=== PATIENT | female | born 1975 | race Caucasian/White ===

== ENCOUNTER 2020-05-16 17:28 | Emergency (ER) | payer OTHER ==
[~2020-05-16 17:28] MED LIST: NAPROXEN250 MG PO; NORCO 5-325 TA1 EACH PO; PHENERGAN 12.12.5 M1 PO; PROVERA10 MG PO; ZOLOFT100 MG PO
[2020-05-16 20:45] LABS: BUN/CREATININE RATIO 19 (0-10)
[2020-05-16 21:08] LABS: HEMOGLOBIN 10.2 gm/dl (12.3-15.3); RED BLOOD COUNT 4.62 M/UL (4.00-5.10); WHITE BLOOD COUNT 17.6 K/UL (4.5-11.0)
[2020-05-16] MEDS ORDERED: TORADOL 10 MG T10 MG PO (21:22)
== END 2020-05-16 21:25 | disposition home or self-care (01) ==
LOC: ER1 17:28
PROVIDERS: Emergency Medicine
DX: S39.012A Strain of muscle, fascia and tendon of lower back, initial encounter (principal); D72.829 Elevated white blood cell count, unspecified; R31.9 Hematuria, unspecified; X50.0XXA Overexertion from strenuous movement or load, initial encounter
CPT/HCPCS: 72131; 80053; 81001; 85025; 86140; 96372; 99284; J1885; Q9967

== ENCOUNTER 2020-06-03 23:29 | Emergency (ER) | payer OTHER ==
[~2020-06-03 23:29] MED LIST changes: +TORADOL 10 MG T10 MG PO
[2020-06-04 00:42] LABS: HEMOGLOBIN 10.1 gm/dl (12.3-15.3); RED BLOOD COUNT 4.68 M/UL (4.00-5.10); WHITE BLOOD COUNT 12.1 K/UL (4.5-11.0)
[2020-06-04 00:51] LABS: BUN/CREATININE RATIO 17 (0-10)
== END 2020-06-04 08:03 | disposition home or self-care (01) ==
LOC: ER1 23:29
PROVIDERS: Emergency Medicine
DX: M54.5 Low back pain (principal); F17.210 Nicotine dependence, cigarettes, uncomplicated; Z90.49 Acquired absence of other specified parts of digestive tract
CPT/HCPCS: 36415; 80053; 81001; 85025; 85652; 86140; 87040; 99283

== ENCOUNTER 2020-07-27 22:35 | Emergency (ER) | payer OTHER ==
[2020-07-27 23:23] LABS: HEMOGLOBIN 9.7 gm/dl (12.3-15.3); RED BLOOD COUNT 4.94 M/UL (4.00-5.10); WHITE BLOOD COUNT 9.4 K/UL (4.5-11.0)
[2020-07-27 23:45] LABS: BUN/CREATININE RATIO 14 (0-10)
[2020-07-28] MEDS ORDERED: VENTOLIN HFA 66.7 GM INH (04:06)
[2020-07-28] MEDS ORDERED: PREDNISONE 50 M50 MG PO (04:06)
== END 2020-07-28 04:20 | disposition home or self-care (01) ==
LOC: ER1 22:35
PROVIDERS: Physician Assistant
DX: J06.9 Acute upper respiratory infection, unspecified (principal); R10.9 Unspecified abdominal pain; R00.1 Bradycardia, unspecified; F17.210 Nicotine dependence, cigarettes, uncomplicated; Z90.49 Acquired absence of other specified parts of digestive tract; Z20.822 Contact with and (suspected) exposure to COVID-19
CPT/HCPCS: 0240U; 71045; 80053; 82550; 82553; 83874; 84484; 84703; 85025; 85379; 85610; 85730; 87086; 93005; 99284; Q9967

== ENCOUNTER → 2020-09-01 | Outpatient (CLI) | payer OTHER ==
[~2020-09-01] MED LIST changes: +COLACE100 MG PO; +IBUPROFEN800 MG PO; +INTEGRA PLUS C1 EACH PO; +PERCOCET 5/325 T1 EA PO; +PREDNISONE 50 M50 MG PO; +VENTOLIN HFA 66.7 GM INH
[2020-09-01 10:00] LABS: HEMOGLOBIN 8.2 gm/dl (12.3-15.3); RED BLOOD COUNT 4.51 M/UL (4.00-5.10); WHITE BLOOD COUNT 8.9 K/UL (4.5-11.0)
== END ==
LOC: OPSV2 09:00
PROVIDERS: Obstetrics & Gynecology
DX: Z01.812 Encounter for preprocedural laboratory examination (principal)
CPT/HCPCS: 36415; 81001; 85025

== ENCOUNTER 2020-09-09 06:48 | Day surgery (SDC) | payer OTHER ==
[~2020-09-09] VITALS: Ht 172.7 cm; Wt 90.7 kg
[~2020-09-09 06:48] MED LIST changes: -COLACE100 MG PO; -IBUPROFEN800 MG PO; -INTEGRA PLUS C1 EACH PO; -PERCOCET 5/325 T1 EA PO
[2020-09-09] MEDS ORDERED: IBUPROFEN800 MG PO (12:47)
[2020-09-09] MEDS ORDERED: COLACE100 MG PO (12:47)
[2020-09-09] MEDS ORDERED: PERCOCET 5/325 T1 EA PO (12:47)
[2020-09-10 05:11] LABS: HEMOGLOBIN 6.2 gm/dl (12.3-15.3)
--- NOTE | 2020-09-10 05:19 | NUR ---
PT HGB REPORTED BY LAB CRITICAL 6.2. CALLED DR. GERALD SAM WHO IS PRODUCT STRATEGY DIRECTOR AND REPORTED HGB OF 6.2. HE STATED THAT WAS FINE, NO NEW ORDER. I REPEATED TO ENSURE ACCURATE ORDER AND HE REPEATED THAT WAS FINE.
[2020-09-10] MEDS ORDERED: INTEGRA PLUS C1 EACH PO (08:29)
== END 2020-09-10 09:12 | disposition home or self-care (01) ==
LOC: OR 06:48 → MED SURG 4 11:35 → OR 09-10 09:12
PROVIDERS: Obstetrics & Gynecology
DX: D25.1 Intramural leiomyoma of uterus (principal); N72 Inflammatory disease of cervix uteri; N87.9 Dysplasia of cervix uteri, unspecified; N70.11 Chronic salpingitis; N73.6 Female pelvic peritoneal adhesions (postinfective); F17.210 Nicotine dependence, cigarettes, uncomplicated
CPT/HCPCS: 85014; 85018; J0690; J1100; J1885; J2001; J2250; J2405; J2704; J2710; J3010; J7120